=== PATIENT | female | born 1945 | race Caucasian/White ===

== ENCOUNTER 2025-03-23 06:44 | Day surgery (SDC) | payer OTHER ==
[2025-03-21 14:08] VITALS: BMI 27.3
[2025-03-23 07:17] VITALS: RESP 18
[2025-03-23] MEDS: LIDOCAINE HCL 1% PRESERVATIVE FREE - 30ML VIAL IJ ONE ×3 (08:33)
[2025-03-23] MEDS: IOHEXOL 180 MG/1 ML ML IJ ONE (08:35)
[2025-03-23] MEDS: DEXAMETHASONE SOD PHOSPHATE 10 MG/1 ML VIAL IVPUSH ONE ×2 (08:39)
[2025-03-23 12:36] VITALS: BP 136/74; PULSE 56; TEMP 97.5
== END 2025-03-23 09:10 | disposition home or self-care (01) ==
LOC: JASU-SURG 06:44
PROVIDERS: ATTEND Pain Medicine Pain Medicine
PROC: 3E0R3BZ Introduction of Anesthetic Agent into Spinal Canal, Percutaneous Approach (ICD-10-PCS; 2025-03-23)
PROC: 3E0R33Z Introduction of Anti-inflammatory into Spinal Canal, Percutaneous Approach (ICD-10-PCS; principal; 2025-03-23 08:45)
DX: M54.16 Radiculopathy, lumbar region (principal)
CPT/HCPCS: 76000-TC-FY; J1100